=== PATIENT | male | born 1935 | race Caucasian/White ===

== ENCOUNTER → 2017-07-02 | Outpatient (CLI) | payer OTHER ==
--- NOTE | 2017-07-02 09:37 | RAD ---
HISTORY: Atherosclerotic heart disease Study: PA lateral chest Comparison: None Findings: Mild hyperinflation is noted. There appears to be minimal atelectatic change/infiltrate in the right lung base with minimal pleural effusion. The heart size is normal. Patient is status post median s ternotomy. Minimal degenerative changes present within the thoracic spine. IMPRESSION: 1. Mild hyperinflation. 2. Minimal right lower lobe atelectatic change/infiltrate. A tiny pleural effusion is noted on righ t Reported By:
== END ==
LOC: RAD 09:04
DX: I25.110 Atherosclerotic heart disease of native coronary artery with unstable angina pectoris (principal)
CPT/HCPCS: 71046

== ENCOUNTER 2018-06-17 09:07 | Inpatient (IN) ==
[2018-06-17 09:18] VITALS: BMI 23.8
[2018-06-17] MEDS ORDERED: MORPHINE SULFATE INJ 2 MG INJ IVP ONE ×2 (09:48→11:35)
[2018-06-17] MEDS ORDERED: MORPHINE SULFATE INJ 2 MG INJ ONE ×2 (09:55→11:37)
[2018-06-17] MEDS: NS 1000 ML 1,000 ML IV SCH ×3 (10:08→22:00)
[2018-06-17] MEDS: ZOFRAN INJ 4 MG VIAL IVP PRN (10:08)
[2018-06-17 10:13] LABS: BASOPHILS % (AUTO) 0.3 % (0.2-1.0); HEMATOCRIT 44.8 % (42.0-54.0); HEMOGLOBIN 14.5 g/dL (13.5-18.0); LYMPHOCYTES # (AUTO) 0.4 X10^3/uL (1.3-2.9); LYMPHOCYTES % (AUTO) 3.2 % (21.0-51.0); MEAN CORPUSCULAR HEMOGLOBIN 26.5 pg (27.0-34.0); MEAN CORPUSCULAR HGB CONC 32.3 g/dL (33.0-35.0); MEAN CORPUSCULAR VOLUME 81.8 fL (80.0-100.0); MONOCYTES # (AUTO) 1.4 x10^3/uL (0.3-0.8); NEUTROPHILS # (AUTO) 11.7 x10^3/uL (2.2-4.8); NEUTROPHILS % (AUTO) 86.5 % (42.0-75.0); PLATELET COUNT 251 X10^3/uL (150.0-450.0); RED BLOOD COUNT 5.48 X10^6/uL (4.7-6.0); RED CELL DISTRIBUTION WIDTH 16.8 % (11.6-16.5); WHITE BLOOD COUNT 13.5 X10^3/uL (3.6-10.0)
--- NOTE | 2018-06-17 10:26 | DR.MBACK ---
HPI Time Seen Time Seen by Provider: 06/17/18 09:48 PCP Primary Care Physician: [place] HPI Comment HPI Comment: PATIENT IS A Complaint Chief Complaint Doctors Comments: LOWER BACK PAIN WITH NAUSEA AND NOT EATING FOR 5 DAYS. Chief Complaint:: PATIENT IS C/O SEVERE BACK PAIN FOR THE LAST 5 DAYS. HE STATED THAT HE HURT IS BACK CLIMBING STAIRS. HE ALSO STATED THAT HE HAS NOT EAT OR DRINK IN 5 DAYS. Source History Provided: Patient Mode of Arrival Mode of Arrival: Ambulatory Timing Onset of Chief Complaint: 06/12/18 PMH PMH Past Medical History: Yes Past Medical History Comment: CANCER Past Surgical History: Yes Surgical History: CABG/Valve Surgery Family History History of Family Medical Conditions: No Social History Does any household member use tobacco: No Alcohol Use: None Do you use any recreational Drugs:: No Lives With: Family Lives Where: Home infectious screening In the last 2 months have you had wt loss of >10#?: NO Have you had fever, night sweats or hemotysis?: No Have you traveled outside the country in the last 6 months?: No Isolation: Standard PE Vital Signs Vitals: Pulse Rate [Left Brachial] 74 Pulse Rate 92 Respiratory Rate 16 Blood Pressure [Left Arm] 147/85 Blood Pressure 97/57 O2 Sat by Pulse Oximetry 95 ROR Labs Reviewed Result Diagrams: 06/17/18 10:05 06/17/18 10:05 Laboratory: WBC 13.5 X10^3/uL (3.6-10.0) H 06/17/18 10:05 RBC 5.48 X10^6/uL (4.7-6.0) 06/17/18 10:05 Hgb 14.5 g/dL (13.5-18.0) 06/17/18 10:05 Hct 44.8 % (42.0-54.0) 06/17/18 10:05 MCV 81.8 fL (80.0-100.0) 06/17/18 10:05 MCH 26.5 pg (27.0-34.0) L 06/17/18 10:05 MCHC 32.3 g/dL (33.0-35.0) L 06/17/18 10:05 RDW 16.8 % (11.6-16.5) H 06/17/18 10:05 Plt Count 251 X10^3/uL (150.0-450.0) 06/17/18 10:05 MPV 8.0 fL (7.4-11.0) 06/17/18 10:05 Neut % (Auto) 86.5 % (42.0-75.0) H 06/17/18 10:05 Lymph % (Auto) 3.2 % (21.0-51.0) L 06/17/18 10:05 [place] % (Auto) 10.0 % (0.0-13.0) 06/17/18 10:05 Eos % (Auto) 0.0 % (0.9-2.9) L 06/17/18 10:05 Baso % (Auto) 0.3 % (0.2-1.0) 06/17/18 10:05 Neut # (Auto) 11.7 x10^3/uL (2.2-4.8) H 06/17/18 10:05 Lymph # (Auto) 0.4 X10^3/uL (1.3-2.9) L 06/17/18 10:05 [place] # (Auto) 1.4 x10^3/uL (0.3-0.8) H 06/17/18 10:05 Eos # (Auto) 0.0 x10^3/uL (0.0-0.2) 06/17/18 10:05 Baso # (Auto) 0.0 X10^3/uL (0.0-0.1) 06/17/18 10:05 Absolute Nucleated RBC 0.0 /100WBC 06/17/18 10:05 Sodium 136 mmol/L (136-145) 06/17/18 10:05 Corrected Sodium 137 mmol/L (136-145) 06/17/18 10:05 Potassium 4.1 mmol/L (3.5-5.1) 06/17/18 10:05 Chloride 101 mmol/L (98-107) 06/17/18 10:05 Carbon Dioxide 25.6 mmol/L (21-32) 06/17/18 10:05 BUN 36 mg/dL (7-18) H 06/17/18 10:05 Creatinine 1.55 mg/dL (0.70-1.30) H 06/17/18 10:05 Est GFR (MDRD) Af Amer 55 (>60) L 06/17/18 10:05 Est GFR (MDRD) Non-Af 46 (>60) L 06/17/18 10:05 Glucose 144 mg/dL (65-99) H 06/17/18 10:05 Calcium 9.3 mg/dL (8.5-10.1) 06/17/18 10:05 Corrected Calcium 10.1 mg/dL (8.5-10.1) 06/17/18 10:05 Total Bilirubin 0.80 mg/dL (0.2-1.0) 06/17/18 10:05 AST 15 Units/L (15-37) 06/17/18 10:05 ALT 19 Units/L (12-78) 06/17/18 10:05 Alkaline Phosphatase 94 Units/L (46-116) 06/17/18 10:05 Creatine Kinase 45 Units/L (39-308) 06/17/18 10:05 CK-MB (CK-2) 1.0 ng/mL (0-4.0) 06/17/18 10:05 CK/CKMB % Calc 2.2 % (<4) 06/17/18 10:05 Troponin I < 0.02 ng/mL (0-1.5) 06/17/18 10:05 Total Protein 7.1 g/dL (6.4-8.2) 06/17/18 10:05 Albumin 3.0 g/dL (3.4-5.0) L 06/17/18 10:05 Globulin 4.1 g/dL (2.5-4.5) 06/17/18 10:05 Albumin/Globulin Ratio 0.7 Ratio (1.1-2.1) L 06/17/18 10:05 Specimen Type Random urine 06/17/18 11:34 Urine Color Yellow (YELLOW) 06/17/18 11:34 Urine Appearance Cloudy (CLEAR) 06/17/18 11:34 Urine pH 5.0 (5.0 - 8.0) 06/17/18 11:34 Ur Specific [place] 1.020 (1.000-1.030) 06/17/18 11:34 Urine Protein 2+ (NEGATIVE) 06/17/18 11:34 Urine Glucose (UA) 3+ (NEGATIVE) 06/17/18 11:34 Urine Ketones 3+ (NEGATIVE) 06/17/18 11:34 Urine Occult Blood 1+ (NEGATIVE) 06/17/18 11:34 Urine Nitrite Negative (NEGATIVE) 06/17/18 11:34 Urine Bilirubin Negative (NEGATIVE) 06/17/18 11:34 Urine Urobilinogen Normal (NORMAL) 06/17/18 11:34 Ur Leukocyte Esterase 1+ (NEGATIVE) 06/17/18 11:34 Urine RBC 0-2 /HPF (NONE SEEN) 06/17/18 11:34 Urine WBC 0-2 /HPF (NONE SEEN) 06/17/18 11:34 Ur Squamous Epith Cells Negative /HPF (NEGATIVE) 06/17/18 11:34 Urine Bacteria Negative /HPF (NEGATIVE) 06/17/18 11:34 Urine Mucus Few /HPF (NEGATIVE) 06/17/18 11:34 Ur Culture Indicated? No/not indicated 06/17/18 11:34
[2018-06-17 10:30] LABS: BLOOD UREA NITROGEN 36 mg/dL (7-18); CALCIUM 9.3 mg/dL (8.5-10.1); CARBON DIOXIDE 25.6 mmol/L (21-32); CHLORIDE 101 mmol/L (98-107); COR NA(FOR HYPERGLY) 137 mmol/L (136-145); CREATININE 1.55 mg/dL (0.70-1.30); SODIUM 136 mmol/L (136-145); TROPONIN I < 0.02 ng/mL (0-1.5); eGFR NON BLACK RACES 46 (>60)
[2018-06-17 10:34] LABS: ALANINE AMINOTRANSFERASE 19 Units/L (12-78); ALKALINE PHOSPHATASE 94 Units/L (46-116); ASPARTATE AMINO TRANSFERASE 15 Units/L (15-37); CKMB % 2.2 % (<4); COR CA(FOR HYPOALB) 10.1 mg/dL (8.5-10.1); CREATINE KINASE 45 Units/L (39-308); TOTAL PROTEIN 7.1 g/dL (6.4-8.2)
[2018-06-17] MEDS ORDERED: NS 100 ML IV 100 ML ONE (11:09)
[2018-06-17 11:49] LABS: BILIRUBIN,URINE NEGATIVE (NEGATIVE); BLOOD/HEMOGLOBIN,URINE 1+ (NEGATIVE); GLUCOSE, URINE 3+ (NEGATIVE); KETONES,URINE 3+ (NEGATIVE); LEUKOCYTE ESTERASE ,URINE 1+ (NEGATIVE); NITRITES,URINE NEGATIVE (NEGATIVE); PROTEIN,URINE 2+ (NEGATIVE); UROBILINOGEN,URINE NORMAL (NORMAL)
--- NOTE | 2018-06-17 11:55 | CT ---
HISTORY: Left flank and left quadrant pain Study: CT abdomen and pelvis with contrast Comparison: None Technique: Multiple axial images of the abdomen and pelvis were obtained from the lung bases to the pubic symphysis with the administration of IV contrast. Findings: Images demonstrate partially visualized pleural parenchymal opacities within the right lung which when appropriate may be further evaluated with follow-up CT of the chest. A small left-sided pleural effusion with adjacent compressive atelectasis is noted. Pleural calcifications are demonstrated bilaterally as well. Subcentimeter foci decreased attenuation within the liver are too small to accurately characterize. Diffuse decreased attenuation throughout the liver suggests fatty infiltration. Correlate clinically as other causes of hepatic disease may produce a similar appearance. The spleen, pancreas, adrenals, and right kidney are grossly unremarkable in appearance. Moderate left-sided hydronephrosis and proximal left hydroureter are noted with associated left-sided perinephric and periureteral stranding. These findings may be secondary to a recently passed stone or perhaps infectious process. Recommend clinical correlation and continued follow-up is indicated for further evaluation. A small to moderate-sized hiatal hernia is noted. The visualized esophagus is somewhat patulous and fluid-filled possibly representing reflux. Correlation with endoscopy may be helpful as clinically indicated. Numerous scattered colonic diverticuli are noted. Mild pericolonic mesenteric fat stranding is seen along the course of the descending and sigmoid colon. Early/mild diverticulitis cannot entirely be excluded. Correlate clinically. A small umbilical hernia containing fat is noted. The appendix is partially air-filled and otherwise grossly unremarkable. The prostate is enlarged and heterogeneous in appearance. Calcifications are noted within the prostate as well. The prostate compresses along the inferior margin of the urinary bladder. As visualized the urinary bladder is otherwise grossly unremarkable. Degenerative changes are seen within the visualized spine. IMPRESSION: Small left-sided pleural effusion with other pulmonary findings as noted above. Moderate left-sided hydronephrosis as discussed above. Diverticulosis. See above discussion. Other findings as noted above. Reported By:
[2018-06-17 11:56] LABS: APPEARANCE,URINE CLOUDY (CLEAR); BACTERIA,URINE NEGATIVE /HPF (NEGATIVE); COLOR,URINE YELLOW (YELLOW); RBC,URINE 0-2 /HPF (NONE SEEN); SQUAMOUS EPITHELIAL CELL,UR NEGATIVE /HPF (NEGATIVE)
[2018-06-17 11:57] LABS: MUCUS,URINE FEW /HPF (NEGATIVE)
[2018-06-17] MEDS ORDERED: TORADOL 15 MG VIAL IVP ONE (14:20)
[2018-06-17] MEDS ORDERED: TORADOL 15 MG VIAL ONE (14:21)
[2018-06-17] MEDS ORDERED: PEPCID 20 MG IV PREMIX* 20 MG/50 ML BAG IV PRN (15:11)
[2018-06-18] MEDS: NS 1000 ML 1,000 ML IV SCH ×3 (02:15→18:15)
[2018-06-18 05:27] LABS: BASOPHILS % (AUTO) 0.4 % (0.2-1.0); EOSINOPHILS # (AUTO) 0.1 x10^3/uL (0.0-0.2); EOSINOPHILS % (AUTO) 1.5 % (0.9-2.9); HEMATOCRIT 41.8 % (42.0-54.0); HEMOGLOBIN 13.5 g/dL (13.5-18.0); LYMPHOCYTES # (AUTO) 0.7 X10^3/uL (1.3-2.9); LYMPHOCYTES % (AUTO) 8.6 % (21.0-51.0); MEAN CORPUSCULAR HEMOGLOBIN 26.7 pg (27.0-34.0); MEAN CORPUSCULAR HGB CONC 32.3 g/dL (33.0-35.0); MEAN CORPUSCULAR VOLUME 82.6 fL (80.0-100.0); MEAN PLATELET VOLUME 9.1 fL (7.4-11.0); MONOCYTES % (AUTO) 12.5 % (0.0-13.0); NEUTROPHILS # (AUTO) 5.9 x10^3/uL (2.2-4.8); PLATELET COUNT 234 X10^3/uL (150.0-450.0); RED BLOOD COUNT 5.06 X10^6/uL (4.7-6.0); RED CELL DISTRIBUTION WIDTH 16.9 % (11.6-16.5); WHITE BLOOD COUNT 7.6 X10^3/uL (3.6-10.0)
[2018-06-18 05:35] LABS: ALANINE AMINOTRANSFERASE 19 Units/L (12-78); ALBUMIN 2.6 g/dL (3.4-5.0); ALKALINE PHOSPHATASE 79 Units/L (46-116); ASPARTATE AMINO TRANSFERASE 14 Units/L (15-37); BLOOD UREA NITROGEN 38 mg/dL (7-18); CALCIUM 8.6 mg/dL (8.5-10.1); CHLORIDE 103 mmol/L (98-107); COR CA(FOR HYPOALB) 9.7 mg/dL (8.5-10.1); CREATININE 1.65 mg/dL (0.70-1.30); SODIUM 139 mmol/L (136-145); TOTAL PROTEIN 6.2 g/dL (6.4-8.2); eGFR NON BLACK RACES 43 (>60)
[2018-06-18] MEDS: PLAVIX PO SCH (08:34)
[2018-06-18] MEDS ORDERED: ROCEPHIN VIAL 1 GRAM IVP SCH (09:00)
[2018-06-18] MEDS: NORCO 5/325 MG TAB PO PRN (11:25)
--- NOTE | 2018-06-18 12:02 | DR.H&P ---
H&P - History & Physical for Day of: H&P Date: 06/18/18 - Chief Complaint Chief Complaint: LEFT SIDE PAIN, WEAKNESS, URINARY FREQUENCY, POOR APPETITE FOR 5-6 DAYS - History of Present Illness History of Present Illness: 82 WM ER ADMISSION AFTER PRESENTING WITH CO LEFT FLANK AND LEFT ABDOMINAL PAIN. PTS SPOUSE REPORTS HE HAS NOT HAD BM IN 5 DAYS AND NOT EATING OR DRINKING MUCH. CO FREQUENT URINATION WITH "ONLY SMALL AMOUNT OUT". PT HAS PMH OF HTN, CAD, CHF. PT IS UNDER THE CARE OF THE ID IN [place]. PT HAS CT ABD/PELVIS WITHOUT CONTRAST REVEALING LEFT HYDRONEPHROSIS - Past Medical History Past Medical History: Arthritis, CHF, Coronary Artery Disease - Past Surgical History Surgical History: CABG/Valve Surgery - Family History Family Medical History: Cancer, Sudden Cardiac - Social History Does patient currently use any type of tobacco product: No Have you used tobacco products in the last 12 months: No Does any household member use tobacco: No Alcohol Use: None Drug Use: None - Medications Home Medications: No Known Drug Allergies Allergy (Verified 06/17/18 09:13) CONTINUE taking the following medications cholecalciferol (vitamin D3) [Vitamin D3] 5,000 units PO DAILY 06/17/18 [History] clopidogrel 75 mg PO DAILY 06/17/18 [History] [id number] oil [[place]-3 Fish Oil] 300 mg PO DAILY 06/17/18 [History] - Review of Systems Constitutional: Weakness Eyes: No Symptoms Reported ENT: No Symptoms Reported Respiratory: No Symptoms Reported Cardiovascular: No Symptoms Reported Gastrointestinal: Nausea, Abdominal Pain Genitourinary: Frequency, Retention Musculoskeletal: No Symptoms Reported Skin: No Symptoms Reported Neurological: No Symptoms Reported - Physical Exam Vital Signs: Temperature 98.4 F Pulse Rate [Left Brachial] 70 Pulse Rate 92 Respiratory Rate 20 Blood Pressure [Left Arm] 140/71 Blood Pressure 97/57 O2 Sat by Pulse Oximetry 98 Oriented: Normal Eyes: Normal Ear: Normal Nose: Normal Throat: Normal Respiratory: RLL Diminished, LLL Diminished Cardiovascular: Normal : Normal Auscultation: Bowel Sounds: Normal Palpation: Normal Tenderness: LUQ, LLQ Skin: Decreased [place] Musculoskeletal: Back:Thoracic Psychiatric: Anxiety Affect: Anxious Speech Pattern: Clear, Appropriate - Assessment/Plan (1) Left lateral abdominal pain Status: Acute Plan: ADMIT, STRICT I&OS. SAL[facility]ERO CATH,URINE CULTURE. VERIFY AND RESUME HOME MEDICATION. IV ROCEPHIN 1GM DAILY, PSA LEVEL, FLOMAX 0.4MG DAILY. BP AND CARDIAC MONITORING, CXR (2) Hydronephrosis Status: Acute (3) Renal insufficiency Status: Acute (4) UTI (urinary tract infection) Status: Acute (5) CHF (congestive heart failure) Status: Acute (6) CAD (coronary artery disease) Status: Acute - Allergies Allergies/Adverse Reactions: Allergies Allergy/AdvReac Type Severity Reaction Status Date / Time No Known Drug Allergies Allergy Verified 06/17/18 09:13
[2018-06-18] MEDS: ZOFRAN INJ 4 MG VIAL IVP PRN ×2 (12:46→19:30)
[2018-06-18] MEDS ORDERED: DULCOLAX TAB EC 5 MG PO ONE (12:52)
[2018-06-18] MEDS: MILK OF MAGNESIA PO SCH ×2 (13:12→21:10)
[2018-06-18] MEDS: PROTONIX TAB 40 MG PO SCH (13:12)
--- NOTE | 2018-06-18 15:29 | RAD ---
HISTORY: Gibson's palsy. Esophageal cancer. Congestive heart failure. Study: AP portable chest Comparison: 07/02/2017 Findings: There is minimal atelectatic change/infiltrate the left lung base. Mild is noted in the right lung base. There appear to be areas of pleural thickening. There is slight volume loss in the right hemithorax, possibly due to slight rotation and therefore artifactual. Borderline cardiomegaly is noted. Mild tortuosity of the aorta is noted. The patient is status post median sternotomy. Electronic cardiac device is present on the left and its leads appear to be in appropriate position. IMPRESSION: 1. Minimal bibasilar atelectatic change/infiltrate with what appear be areas of pleural thickening or pleural effusion on the right. Reported By:
[2018-06-18] MEDS: FLOMAX PO SCH ×2 (19:14→20:11)
[2018-06-18] MEDS: DILAUDID INJ IVP PRN (19:29)
[2018-06-18] MEDS: COLACE CAP 100 MG PO SCH (21:10)
[2018-06-18 22:28] LABS: BILIRUBIN,URINE NEGATIVE (NEGATIVE); BLOOD/HEMOGLOBIN,URINE 5+ (NEGATIVE); GLUCOSE, URINE 2+ (NEGATIVE); KETONES,URINE 3+ (NEGATIVE); LEUKOCYTE ESTERASE ,URINE 1+ (NEGATIVE); NITRITES,URINE NEGATIVE (NEGATIVE); PROTEIN,URINE 2+ (NEGATIVE); UROBILINOGEN,URINE NORMAL (NORMAL)
[2018-06-18 22:36] LABS: APPEARANCE,URINE CLOUDY (CLEAR); BACTERIA,URINE TRACE /HPF (NEGATIVE); COLOR,URINE BROWN (YELLOW); RBC,URINE TNTC /HPF (NONE SEEN); SQUAMOUS EPITHELIAL CELL,UR RARE /HPF (NEGATIVE)
[2018-06-18 22:37] LABS: MUCUS,URINE FEW /HPF (NEGATIVE)
[2018-06-19] MEDS: NS 1000 ML 1,000 ML IV SCH ×4 (02:10→18:06)
[2018-06-19 05:19] LABS: BASOPHILS % (AUTO) 0.3 % (0.2-1.0); EOSINOPHILS # (AUTO) 0.1 x10^3/uL (0.0-0.2); EOSINOPHILS % (AUTO) 1.4 % (0.9-2.9); LYMPHOCYTES # (AUTO) 0.5 X10^3/uL (1.3-2.9); LYMPHOCYTES % (AUTO) 7.1 % (21.0-51.0); MEAN CORPUSCULAR HGB CONC 32.5 g/dL (33.0-35.0); MEAN CORPUSCULAR VOLUME 83.1 fL (80.0-100.0); MONOCYTES # (AUTO) 0.9 x10^3/uL (0.3-0.8); MONOCYTES % (AUTO) 12.2 % (0.0-13.0); NEUTROPHILS # (AUTO) 5.6 x10^3/uL (2.2-4.8); PLATELET COUNT 252 X10^3/uL (150.0-450.0); RED BLOOD COUNT 5.18 X10^6/uL (4.7-6.0); RED CELL DISTRIBUTION WIDTH 16.8 % (11.6-16.5); WHITE BLOOD COUNT 7.1 X10^3/uL (3.6-10.0)
[2018-06-19 05:34] LABS: ALANINE AMINOTRANSFERASE 21 Units/L (12-78); ALBUMIN 2.6 g/dL (3.4-5.0); ALKALINE PHOSPHATASE 80 Units/L (46-116); ASPARTATE AMINO TRANSFERASE 16 Units/L (15-37); BLOOD UREA NITROGEN 36 mg/dL (7-18); CALCIUM 8.5 mg/dL (8.5-10.1); CARBON DIOXIDE 27.9 mmol/L (21-32); CHLORIDE 104 mmol/L (98-107); COR CA(FOR HYPOALB) 9.6 mg/dL (8.5-10.1); CREATININE 1.58 mg/dL (0.70-1.30); SODIUM 139 mmol/L (136-145); TOTAL PROTEIN 6.5 g/dL (6.4-8.2); eGFR NON BLACK RACES 45 (>60)
[2018-06-19] MEDS: MILK OF MAGNESIA PO SCH ×2 (08:14→20:33)
[2018-06-19] MEDS: PLAVIX PO SCH (08:15)
[2018-06-19] MEDS: PROTONIX TAB 40 MG PO SCH (08:15)
[2018-06-19] MEDS: ROCEPHIN VIAL 1 GRAM IVP SCH (08:15)
[2018-06-19] MEDS: PEPCID 20 MG IV PREMIX* 20 MG/50 ML BAG IV SCH (08:15)
[2018-06-19] MEDS: DILAUDID INJ IVP PRN ×3 (08:31→23:40)
[2018-06-19] MEDS: ZOFRAN INJ 4 MG VIAL IVP PRN (08:36)
[2018-06-19] MEDS: NORCO 5/325 MG TAB PO PRN (10:53)
--- NOTE | 2018-06-19 17:43 | PCM.PROG ---
Progress Note - Progress Note for Day of Date of Exam: 06/19/18 - Subjective Subjective: 82 WM ER ADMISSION ON 06/18 WITH LEFT FLANK PAIN, DECREASED URINE OUTPT AND LEFT HYDRONEPHROSIS. PT WAS STARTED ON FLOMAX AND IV ROCEPHIN. UC PENDING. PT RENAL FUNCTION IMPROVING, BUN 36, CREAT 1.58 THIS AM. SAL[facility]ERO CATH PLACED FOR STRICT I & OS. PT REPORTS CONTINUED LEFT ABDOMINAL AND FLANK PAIN THIS AM, BUT ABLE TO EAT SMALL AMOUNT. PT DENIES ANY SOB OR CHEST PAIN - Past Medical Family Social History Past Med/Fam/Surg Hx: No changes since H&P Allergies: Allergies No Known Drug Allergies Allergy (Verified 06/17/18 09:13) - Review of Systems ROS: No change since H&P - Vital Signs and I&O's Vital Signs: Temperature 98.5 F Pulse Rate [Left Brachial] 70 Pulse Rate 92 Respiratory Rate 20 Blood Pressure [Left Arm] 105/60 Blood Pressure 97/57 O2 Sat by Pulse Oximetry 95 Intake and Output: Intake & Output 06/17/18 06/18/18 06/19/18 06/20/18 11:59 11:59 11:59 11:59 Intake Total 580 / 580 700 / 700 920 / 920 Output Total 350 / 350 850 / 850 200 / 200 Balance 230 / 230 -150 / -150 720 / 720 - Physical Exam Oriented: Normal Eyes: Normal Ear: Normal Nose: Normal Throat: Normal Respiratory: Diminished Cardiovascular: Normal : Normal Auscultation: Bowel Sounds: Normal Tenderness: LUQ, LLQ Skin: Decreased [place] Musculoskeletal: Back:Thoracic Psychiatric: Anxiety Affect: Anxious Speech Pattern: Clear, Appropriate - Laboratory and Diagnostics Result Diagrams: 06/19/18 04:27 06/19/18 04:27 Labs: Laboratory WBC 7.1 X10^3/uL (3.6-10.0) 06/19/18 04:27 RBC 5.18 X10^6/uL (4.7-6.0) 06/19/18 04:27 Hgb 14.0 g/dL (13.5-18.0) 06/19/18 04:27 Hct 43.0 % (42.0-54.0) 06/19/18 04:27 MCV 83.1 fL (80.0-100.0) 06/19/18 04:27 MCH 27.0 pg (27.0-34.0) 06/19/18 04: MCHC 32.5 g/dL (33.0-35.0) L 06/19/18 04: RDW 16.8 % (11.6-16.5) H 06/19/18 04:27 Plt Count 252 X10^3/uL (150.0-450.0) 06/19/18 04: MPV 9.0 fL (7.4-11.0) 06/19/18 04:27 Neut % (Auto) 79.0 % (42.0-75.0) H 06/19/18 04:27 Lymph % (Auto) 7.1 % (21.0-51.0) L 06/19/18 04:27 [place] % (Auto) 12.2 % (0.0-13.0) 06/19/18 04: Eos % (Auto) 1.4 % (0.9-2.9) 06/19/18 04: Baso % (Auto) 0.3 % (0.2-1.0) 06/19/18 04:27 Neut # (Auto) 5.6 x10^3/uL (2.2-4.8) H 06/19/18 04:27 Lymph # (Auto) 0.5 X10^3/uL (1.3-2.9) L 06/19/18 04:27 [place] # (Auto) 0.9 x10^3/uL (0.3-0.8) H 06/19/18 04:27 Eos # (Auto) 0.1 x10^3/uL (0.0-0.2) 06/19/18 04:27 Baso # (Auto) 0.0 X10^3/uL (0.0-0.1) 06/19/18 04:27 Absolute Nucleated RBC 0.0 /100WBC 06/19/18 04:27 Sodium 139 mmol/L (136-145) 06/19/18 04:27 Corrected Sodium TNP 06/19/18 04:27 Potassium 4.3 mmol/L (3.5-5.1) 06/19/18 04:27 Chloride 104 mmol/L (98-107) 06/19/18 04:27 Carbon Dioxide 27.9 mmol/L (21-32) 06/19/18 04:27 BUN 36 mg/dL (7-18) H 06/19/18 04:27 Creatinine 1.58 mg/dL (0.70-1.30) H 06/19/18 04:27 Est GFR (MDRD) Af Amer 54 (>60) L 06/19/18 04:27 Est GFR (MDRD) Non-Af 45 (>60) L 06/19/18 04:27 Glucose 109 mg/dL (65-99) H 06/19/18 04:27 Calcium 8.5 mg/dL (8.5-10.1) 06/19/18 04:27 Corrected Calcium 9.6 mg/dL (8.5-10.1) 06/19/18 04:27 Total Bilirubin 0.50 mg/dL (0.2-1.0) 06/19/18 04:27 AST 16 Units/L (15-37) 06/19/18 04:27 ALT 21 Units/L (12-78) 06/19/18 04:27 Alkaline Phosphatase 80 Units/L (46-116) 06/19/18 04:27 Creatine Kinase 45 Units/L (39-308) 06/17/18 10:05 CK-MB (CK-2) 1.0 ng/mL (0-4.0) 06/17/18 10:05 CK/CKMB % Calc 2.2 % (<4) 06/17/18 10:05 Troponin I < 0.02 ng/mL (0-1.5) 06/17/18 10:05 Total Protein 6.5 g/dL (6.4-8.2) 06/19/18 04:27 Albumin 2.6 g/dL (3.4-5.0) L 06/19/18 04:27 Globulin 3.9 g/dL (2.5-4.5) 06/19/18 04:27 Albumin/Globulin Ratio 0.7 Ratio (1.1-2.1) L 06/19/18 04:27 Total PSA 2.56 ng/mL (0.13-4.0) 06/18/18 04:23 Specimen Type Catherized urine 06/18/18 22:13 Urine Color Brown (YELLOW) 06/18/18 22:13 Urine Appearance Cloudy (CLEAR) 06/18/18 22:13 Urine pH 5.0 (5.0 - 8.0) 06/18/18 22:13 Ur Specific [place] 1.020 (1.000-1.030) 06/18/18 22:13 Urine Protein 2+ (NEGATIVE) 06/18/18 22:13 Urine Glucose (UA) 2+ (NEGATIVE) 06/18/18 22:13 Urine Ketones 3+ (NEGATIVE) 06/18/18 22:13 Urine Occult Blood 5+ (NEGATIVE) 06/18/18 22:13 Urine Nitrite Negative (NEGATIVE) 06/18/18 22:13 Urine Bilirubin Negative (NEGATIVE) 06/18/18 22:13 Urine Urobilinogen Normal (NORMAL) 06/18/18 22:13 Ur Leukocyte Esterase 1+ (NEGATIVE) 06/18/18 22:13 Urine RBC Tntc /HPF (NONE SEEN) 06/18/18 22:13 Urine WBC 5-10 /HPF (NONE SEEN) 06/18/18 22:13 Ur Squamous Epith Cells Rare /HPF (NEGATIVE) 06/18/18 22:13 Urine Bacteria Trace /HPF (NEGATIVE) 06/18/18 22:13 Urine Mucus Few /HPF (NEGATIVE) 06/18/18 22:13 Ur Culture Indicated? No/not indicated 06/18/18 22:13 - Plan (1) Left lateral abdominal pain Status: Acute Plan: STRICT I&OS. SALGUERO CATH,URINE CULTURE. VERIFY AND RESUME HOME MEDICATION. IV ROCEPHIN 1GM DAILY, PSA LEVEL, FLOMAX 0.4MG DAILY. BP AND CARDIAC MONITORING, CXR ON ADMISSION. GENTLE IV HYDRATION, PAIN CONTROL. REPEAT CT ABD/PELVIS ON SUNDAY. (2) Hydronephrosis Status: Acute (3) Renal insufficiency Status: Acute (4) UTI (urinary tract infection) Status: Acute (5) CHF (congestive heart failure) Status: Acute (6) CAD (coronary artery disease) Status: Acute
[2018-06-19] MEDS: COLACE CAP 100 MG PO SCH (20:34)
[2018-06-19] MEDS: FLOMAX PO SCH (20:34)
[2018-06-20] MEDS: NS 1000 ML 1,000 ML IV SCH ×2 (03:07→13:53)
[2018-06-20 05:57] LABS: BASOPHILS % (AUTO) 0.1 % (0.2-1.0); EOSINOPHILS # (AUTO) 0.2 x10^3/uL (0.0-0.2); EOSINOPHILS % (AUTO) 2.6 % (0.9-2.9); HEMATOCRIT 37.7 % (42.0-54.0); HEMOGLOBIN 12.4 g/dL (13.5-18.0); LYMPHOCYTES # (AUTO) 0.4 X10^3/uL (1.3-2.9); LYMPHOCYTES % (AUTO) 5.5 % (21.0-51.0); MEAN CORPUSCULAR HEMOGLOBIN 27.1 pg (27.0-34.0); MEAN CORPUSCULAR VOLUME 82.1 fL (80.0-100.0); MEAN PLATELET VOLUME 8.2 fL (7.4-11.0); MONOCYTES # (AUTO) 0.9 x10^3/uL (0.3-0.8); MONOCYTES % (AUTO) 12.1 % (0.0-13.0); NEUTROPHILS # (AUTO) 6.3 x10^3/uL (2.2-4.8); NEUTROPHILS % (AUTO) 79.7 % (42.0-75.0); PLATELET COUNT 242 X10^3/uL (150.0-450.0); RED BLOOD COUNT 4.58 X10^6/uL (4.7-6.0); RED CELL DISTRIBUTION WIDTH 16.2 % (11.6-16.5); WHITE BLOOD COUNT 7.9 X10^3/uL (3.6-10.0)
--- NOTE | 2018-06-20 05:57 | CT ---
HISTORY: left flank pain Study: CT abdomen and pelvis without contrast Comparison: 06/17/2018 Technique: Multiple axial images of the abdomen and pelvis were obtained from the lung bases to the pubic symphysis without the administration of IV contrast. Findings: The visualized portions of the lung bases demonstrate bilateral left greater than right pleural effusions. Subsegmental atelectasis of the right and left base is noted. The liver demonstrates multiple subcentimeter lesions with decreased density that have not changed since prior examination of 06/17/2018. Lesions too small to accurately characterize on this noncontrast examination. The spleen is unremarkable in its noncontrast appearance. Pancreas, and adrenal glands image normally. The right kidney is unremarkable in its noncontrast appearance as well. However, the left kidney demonstrates persistent hydronephrosis without obstructing lesion identified. Perinephric stranding is noted to be present as well. Chronic congenital UPJ obstruction could be considered. Postoperative changes under stricture could produce a similar appearance. The gallbladder is unremarkable in its CT appearance. No significant mesenteric lymphadenopathy or stranding can be observed. No free fluid or free air is seen within the abdomen. No bowel wall thickening or bowel dilatation is present. Diffuse diverticular changes sigmoid colon are observed without CT evidence for acute diverticulitis. The urinary bladder is grossly unremarkable. The bony structures are grossly intact. IMPRESSION: Bilateral pleural effusion left greater than right and has not significantly changed since prior examination. Moderate central sliding hiatal hernia with retained food stuff within the distal esophagus. Nonspecific low-density lesions throughout the right and left lobe of the liver that are not well characterized on this noncontrast CT of the abdomen and pelvis. Mild hydronephrosis with perinephric stranding is observed without obstructing lesion of the ureter. Congenital UPJ obstruction could have this appearance but degree of hydronephrosis is minimal. Correlation with post surgical history or instrumentation is requested as possible etiologies as well. No evidence for obstructing or nonobstructing nephrolithiasis can be identified. Extensive diverticular changes of the sigmoid colon are observed without CT evidence for acute diverticulitis. Reported By:
[2018-06-20 06:07] LABS: ALBUMIN 2.3 g/dL (3.4-5.0); CARBON DIOXIDE 27.3 mmol/L (21-32); COR CA(FOR HYPOALB) 9.4 mg/dL (8.5-10.1); CREATININE 1.58 mg/dL (0.70-1.30); TOTAL PROTEIN 5.8 g/dL (6.4-8.2)
[2018-06-20] MEDS: LASIX IVP SCH ×2 (09:01→20:51)
[2018-06-20] MEDS: ROCEPHIN VIAL 1 GRAM IVP SCH (09:01)
[2018-06-20] MEDS: PEPCID 20 MG IV PREMIX* 20 MG/50 ML BAG IV SCH (09:02)
[2018-06-20] MEDS: PROTONIX TAB 40 MG PO SCH (09:05)
[2018-06-20] MEDS: MILK OF MAGNESIA PO SCH ×2 (09:10→20:52)
[2018-06-20] MEDS: PLAVIX PO SCH (09:10)
[2018-06-20] MEDS ORDERED: NEO-SYNEPHRINE INJ ONE (09:17)
[2018-06-20] MEDS ORDERED: NS 500 ML IV 500 ML ONE (12:05)
[2018-06-20] MEDS ORDERED: DIPRIVAN VIAL 20 ML ONE (12:18)
[2018-06-20] MEDS ORDERED: EPHEDRINE SULFATE INJ ONE (12:29)
--- NOTE | 2018-06-20 13:11 | OR.GENERIC ---
Post-Op Note Generic - Post-Op Note Operative Report: EGD with dilation of pyloric spasm . findings : pyloric spasm with large amount of residual food particles and bile in the stomach .. the old anastomosis is patent and wide open .. no recurrent cancer . no bleeding or ulcers . will start full liquid and advance to soft diet as tolerated . will need future dilation in few months ..
--- NOTE | 2018-06-20 17:11 | PCM.PROG ---
Progress Note - Progress Note for Day of Date of Exam: 06/20/18 - Subjective Subjective: 82 WM ER ADMISSION ON 06/18 WITH LEFT FLANK PAIN, DECREASED URINE OUTPT AND LEFT HYDRONEPHROSIS. PT ON FLOMAX AND IV ROCEPHIN. UC PENDING. PT RENAL FUNCTION IMPROVING. SALGUERO CATH PLACED FOR STRICT I & OS. PT REPORTS CONTINUED LEFT ABDOMINAL AND FLANK PAIN THIS AM, BUT ABLE TO EAT SMALL AMOUNT. PT'S REPEAT CT THIS AM. PT IS Status post esophagectomy with proximal gastroesophageal anastomosis for esophageal cancer. Possible distal obstruction with a large amount of retained food in the stomach. PT NPO, CONSULTED DR HENDERSON. - Past Medical Family Social History Past Med/Fam/Surg Hx: No changes since H&P Allergies: Allergies No Known Drug Allergies Allergy (Verified 06/17/18 09:13) - Review of Systems ROS: No change since H&P - Vital Signs and I&O's Vital Signs: Temperature 98.5 F Pulse Rate [Left Brachial] 75 Pulse Rate 92 Respiratory Rate 18 Blood Pressure [Right Arm] 125/83 Blood Pressure [Left Arm] 97/66 Blood Pressure 97/57 O2 Sat by Pulse Oximetry 92 Intake and Output: Intake & Output 06/18/18 06/19/18 06/20/18 06/21/18 11:59 11:59 11:59 11:59 Intake Total 580 / 580 700 / 700 2345 / 2345 240 / 240 Output Total 350 / 350 850 / 850 1200 / 1200 1750 / 1750 Balance 230 / 230 -150 / -150 1145 / 1145 -1510 / -1510 - Physical Exam Oriented: Normal Eyes: Normal Ear: Normal Nose: Normal Throat: Normal Respiratory: Diminished Cardiovascular: Normal : Normal Auscultation: Bowel Sounds: Normal Tenderness: LUQ, LLQ Skin: Decreased Turgur Musculoskeletal: Back:Thoracic Psychiatric: Anxiety Affect: Anxious Speech Pattern: Clear, Appropriate - Laboratory and Diagnostics Result Diagrams: 06/20/18 05:15 06/20/18 05:15 Labs: 06/18/18 22:13 Urine,Catheterized Urine Culture - Preliminary Laboratory WBC 7.9 X10^3/uL (3.6-10.0) 06/20/18 05:15 RBC 4.58 X10^6/uL (4.7-6.0) L 06/20/18 05:15 Hgb 12.4 g/dL (13.5-18.0) L 06/20/18 05:15 Hct 37.7 % (42.0-54.0) L 06/20/18 05:15 MCV 82.1 fL (80.0-100.0) 06/20/18 05:15 MCH 27.1 pg (27.0-34.0) 06/20/18 05:15 MCHC 33.0 g/dL (33.0-35.0) 06/20/18 05:15 RDW 16.2 % (11.6-16.5) 06/20/18 05:15 Plt Count 242 X10^3/uL (150.0-450.0) 06/20/18 05:15 MPV 8.2 fL (7.4-11.0) 06/20/18 05:15 Neut % (Auto) 79.7 % (42.0-75.0) H 06/20/18 05:15 Lymph % (Auto) 5.5 % (21.0-51.0) L 06/20/18 05:15 [place] % (Auto) 12.1 % (0.0-13.0) 06/20/18 05:15 Eos % (Auto) 2.6 % (0.9-2.9) 06/20/18 05:15 Baso % (Auto) 0.1 % (0.2-1.0) L 06/20/18 05:15 Neut # (Auto) 6.3 x10^3/uL (2.2-4.8) H 06/20/18 05:15 Lymph # (Auto) 0.4 X10^3/uL (1.3-2.9) L 06/20/18 05:15 [place] # (Auto) 0.9 x10^3/uL (0.3-0.8) H 06/20/18 05:15 Eos # (Auto) 0.2 x10^3/uL (0.0-0.2) 06/20/18 05:15 Baso # (Auto) 0.0 X10^3/uL (0.0-0.1) 06/20/18 05:15 Absolute Nucleated RBC 0.0 /100WBC 06/20/18 05:15 Sodium 138 mmol/L (136-145) 06/20/18 05:15 Corrected Sodium 139 mmol/L (136-145) 06/20/18 05:15 Potassium 4.3 mmol/L (3.5-5.1) 06/20/18 05:15 Chloride 104 mmol/L (98-107) 06/20/18 05:15 Carbon Dioxide 27.3 mmol/L (21-32) 06/20/18 05:15 BUN 31 mg/dL (7-18) H 06/20/18 05:15 Creatinine 1.58 mg/dL (0.70-1.30) H 06/20/18 05:15 Est GFR (MDRD) Af Amer 54 (>60) L 06/20/18 05:15 Est GFR (MDRD) Non-Af 45 (>60) L 06/20/18 05:15 Glucose 127 mg/dL (65-99) H 06/20/18 05:15 Calcium 8.0 mg/dL (8.5-10.1) L 06/20/18 05:15 Corrected Calcium 9.4 mg/dL (8.5-10.1) 06/20/18 05:15 Total Bilirubin 0.40 mg/dL (0.2-1.0) 06/20/18 05:15 AST 13 Units/L (15-37) L 06/20/18 05:15 ALT 17 Units/L (12-78) 06/20/18 05:15 Alkaline Phosphatase 74 Units/L (46-116) 06/20/18 05:15 Creatine Kinase 45 Units/L (39-308) 06/17/18 10:05 CK-MB (CK-2) 1.0 ng/mL (0-4.0) 06/17/18 10:05 CK/CKMB % Calc 2.2 % (<4) 06/17/18 10:05 Troponin I < 0.02 ng/mL (0-1.5) 06/17/18 10:05 Total Protein 5.8 g/dL (6.4-8.2) L 06/20/18 05:15 Albumin 2.3 g/dL (3.4-5.0) L 06/20/18 05:15 Globulin 3.5 g/dL (2.5-4.5) 06/20/18 05:15 Albumin/Globulin Ratio 0.7 Ratio (1.1-2.1) L 06/20/18 05:15 Total PSA 2.56 ng/mL (0.13-4.0) 06/18/18 04:23 Specimen Type Catherized urine 06/18/18 22:13 Urine Color Brown (YELLOW) 06/18/18 22:13 Urine Appearance Cloudy (CLEAR) 06/18/18 22:13 Urine pH 5.0 (5.0 - 8.0) 06/18/18 22:13 Ur Specific [place] 1.020 (1.000-1.030) 06/18/18 22:13 Urine Protein 2+ (NEGATIVE) 06/18/18 22:13 Urine Glucose (UA) 2+ (NEGATIVE) 06/18/18 22:13 Urine Ketones 3+ (NEGATIVE) 06/18/18 22:13 Urine Occult Blood 5+ (NEGATIVE) 06/18/18 22:13 Urine Nitrite Negative (NEGATIVE) 06/18/18 22:13 Urine Bilirubin Negative (NEGATIVE) 06/18/18 22:13 Urine Urobilinogen Normal (NORMAL) 06/18/18 22:13 Ur Leukocyte Esterase 1+ (NEGATIVE) 06/18/18 22:13 Urine RBC Tntc /HPF (NONE SEEN) 06/18/18 22:13 Urine WBC 5-10 /HPF (NONE SEEN) 06/18/18 22:13 Ur Squamous Epith Cells Rare /HPF (NEGATIVE) 06/18/18 22:13 Urine Bacteria Trace /HPF (NEGATIVE) 06/18/18 22:13 Urine Mucus Few /HPF (NEGATIVE) 06/18/18 22:13 Ur Culture Indicated? No/not indicated 06/18/18 22:13 - Plan (1) Left lateral abdominal pain Status: Acute Plan: STRICT I&OS. SALGUERO CATH,URINE CULTURE. IV ROCEPHIN 1GM DAILY, PSA LEVEL, FLOMAX 0.4MG DAILY. BP AND CARDIAC MONITORING. IV LASIX IV. GENTLE IV HYDRATION, PAIN CONTROL. REPEAT CT ABD/PELVIS ON SUNDAY. (2) Hydronephrosis Status: Acute (3) Renal insufficiency Status: Acute (4) UTI (urinary tract infection) Status: Acute (5) CHF (congestive heart failure) Status: Acute (6) CAD (coronary artery disease) Status: Acute (7) History of esophageal cancer Status: Acute Plan: NPO FOR GI CONSULT. SEE CT REPORT (8) History of esophageal disorder Status: Acute
[2018-06-20] MEDS: COLACE CAP 100 MG PO SCH (20:51)
[2018-06-20] MEDS: FLOMAX PO SCH (20:51)
[2018-06-21] MEDS: NS 1000 ML 1,000 ML IV SCH ×4 (05:09→10:45)
[2018-06-21 05:23] LABS: BASOPHILS % (AUTO) 0.4 % (0.2-1.0); EOSINOPHILS # (AUTO) 0.3 x10^3/uL (0.0-0.2); HEMATOCRIT 35.3 % (42.0-54.0); HEMOGLOBIN 11.6 g/dL (13.5-18.0); LYMPHOCYTES # (AUTO) 0.6 X10^3/uL (1.3-2.9); LYMPHOCYTES % (AUTO) 10.5 % (21.0-51.0); MEAN CORPUSCULAR HEMOGLOBIN 26.6 pg (27.0-34.0); MEAN CORPUSCULAR HGB CONC 32.9 g/dL (33.0-35.0); MEAN PLATELET VOLUME 8.3 fL (7.4-11.0); MONOCYTES # (AUTO) 0.7 x10^3/uL (0.3-0.8); MONOCYTES % (AUTO) 12.5 % (0.0-13.0); NEUTROPHILS # (AUTO) 4.1 x10^3/uL (2.2-4.8); NEUTROPHILS % (AUTO) 70.6 % (42.0-75.0); PLATELET COUNT 240 X10^3/uL (150.0-450.0); RED BLOOD COUNT 4.35 X10^6/uL (4.7-6.0); RED CELL DISTRIBUTION WIDTH 16.2 % (11.6-16.5); WHITE BLOOD COUNT 5.8 X10^3/uL (3.6-10.0)
[2018-06-21 05:26] LABS: ALANINE AMINOTRANSFERASE 17 Units/L (12-78); ALBUMIN 2.3 g/dL (3.4-5.0); ALKALINE PHOSPHATASE 69 Units/L (46-116); ASPARTATE AMINO TRANSFERASE 15 Units/L (15-37); BLOOD UREA NITROGEN 20 mg/dL (7-18); CALCIUM 7.8 mg/dL (8.5-10.1); CARBON DIOXIDE 30.6 mmol/L (21-32); CHLORIDE 101 mmol/L (98-107); COR CA(FOR HYPOALB) 9.2 mg/dL (8.5-10.1); CREATININE 1.18 mg/dL (0.70-1.30); SODIUM 137 mmol/L (136-145); TOTAL PROTEIN 5.6 g/dL (6.4-8.2); eGFR NON BLACK RACES > 60 (>60)
[2018-06-21] MEDS ORDERED: K-DUR TAB 20 MEQ PO PRN (05:52)
[2018-06-21] MEDS ORDERED: KLOR-CON PO PRN (05:52)
[2018-06-21] MEDS ORDERED: POTASSIUM CHLORIDE LIQ 20 MEQ UDC PO PRN (05:52)
[2018-06-21] MEDS ORDERED: POTASSIUM CHL 60 MEQ/NS 0.45% 500 ML IV PRN (05:52)
[2018-06-21] MEDS ORDERED: MICRO K EXTEN CAP 10 MEQ PO PRN (05:52)
[2018-06-21] MEDS ORDERED: POTASSIUM CHL 40 MEQ/NS 0.45% 500 ML IV PRN (05:52)
[2018-06-21] MEDS ORDERED: K-RIDER 10 MEQ/NS 100 ML 10 MEQ/100 ML BAG IV PRN (05:52)
[2018-06-21] MEDS ORDERED: KLOR-CON PO ONE (06:23)
[2018-06-21] MEDS: ROCEPHIN VIAL 1 GRAM IVP SCH (08:50)
[2018-06-21] MEDS: PEPCID 20 MG IV PREMIX* 20 MG/50 ML BAG IV SCH (08:50)
[2018-06-21] MEDS: PROTONIX TAB 40 MG PO SCH (08:50)
[2018-06-21] MEDS: MILK OF MAGNESIA PO SCH (08:51)
[2018-06-21] MEDS: PLAVIX PO SCH (08:51)
--- NOTE | 2018-06-21 10:55 | DR.PROGNOT ---
Hospital Progress Notes - Progress Note for Day of: Progress Note Date: 06/21/18 - Chief Complaint Chief Complaint: tolerating diet well . still c/o pressure feeling after meals . no vomiting . - Past Medical Family Social History Past Med/Fam/Surg Hx: No changes since H&P Allergies: Allergies No Known Drug Allergies Allergy (Verified 06/17/18 09:13) - Review Of Systems ROS: No change since H&P - Vital Signs Vital Signs: Temperature 98.0 F Pulse Rate [Left Brachial] 76 Pulse Rate 92 Respiratory Rate 20 Blood Pressure [Right Arm] 99/65 Blood Pressure [Left Arm] 97/66 Blood Pressure 97/57 O2 Sat by Pulse Oximetry 98 - Physical Exam Oriented: Normal Eyes: Normal Ear: Normal Nose: Normal Throat: Normal Respiratory: Diminished Cardiovascular: Normal : Normal GI:Auscultation: Normal GI:Palpation: Normal (soft abdomen , non tender , BS +) GI: Tenderness: LUQ, LLQ Skin: Decreased Turgur Musculoskeletal: Back:Thoracic Psychiatric: Anxiety Affect: Anxious Speech Pattern: Clear, Appropriate - Laboratory and Diagnostics Result Diagrams: 06/21/18 04:31 06/21/18 04:31 Labs: 06/18/18 22:13 Urine,Catheterized Urine Culture - Final Laboratory WBC 5.8 X10^3/uL (3.6-10.0) 06/21/18 04:31 RBC 4.35 X10^6/uL (4.7-6.0) L 06/21/18 04:31 Hgb 11.6 g/dL (13.5-18.0) L 06/21/18 04:31 Hct 35.3 % (42.0-54.0) L 06/21/18 04:31 MCV 81.0 fL (80.0-100.0) 06/21/18 04:31 MCH 26.6 pg (27.0-34.0) L 06/21/18 04:31 MCHC 32.9 g/dL (33.0-35.0) L 06/21/18 04:31 RDW 16.2 % (11.6-16.5) 06/21/18 04:31 Plt Count 240 X10^3/uL (150.0-450.0) 06/21/18 04:31 MPV 8.3 fL (7.4-11.0) 06/21/18 04:31 Neut % (Auto) 70.6 % (42.0-75.0) 06/21/18 04:31 Lymph % (Auto) 10.5 % (21.0-51.0) L 06/21/18 04:31 [place] % (Auto) 12.5 % (0.0-13.0) 06/21/18 04:31 Eos % (Auto) 6.0 % (0.9-2.9) H 06/21/18 04:31 Baso % (Auto) 0.4 % (0.2-1.0) 06/21/18 04:31 Neut # (Auto) 4.1 x10^3/uL (2.2-4.8) 06/21/18 04:31 Lymph # (Auto) 0.6 X10^3/uL (1.3-2.9) L 06/21/18 04:31 [place] # (Auto) 0.7 x10^3/uL (0.3-0.8) 06/21/18 04:31 Eos # (Auto) 0.3 x10^3/uL (0.0-0.2) H 06/21/18 04:31 Baso # (Auto) 0.0 X10^3/uL (0.0-0.1) 06/21/18 04:31 Absolute Nucleated RBC 0.0 /100WBC 06/21/18 04:31 Sodium 137 mmol/L (136-145) 06/21/18 04:31 Corrected Sodium TNP 06/21/18 04:31 Potassium 3.4 mmol/L (3.5-5.1) L 06/21/18 04:31 Chloride 101 mmol/L (98-107) 06/21/18 04:31 Carbon Dioxide 30.6 mmol/L (21-32) 06/21/18 04:31 BUN 20 mg/dL (7-18) H 06/21/18 04:31 Creatinine 1.18 mg/dL (0.70-1.30) 06/21/18 04:31 Est GFR (MDRD) Af Amer > 60 (>60) 06/21/18 04:31 Est GFR (MDRD) Non-Af > 60 (>60) 06/21/18 04:31 Glucose 110 mg/dL (65-99) H 06/21/18 04:31 Calcium 7.8 mg/dL (8.5-10.1) L 06/21/18 04:31 Corrected Calcium 9.2 mg/dL (8.5-10.1) 06/21/18 04:31 Magnesium 2.2 mg/dL (1.7-2.9) 06/21/18 04:31 Total Bilirubin 0.40 mg/dL (0.2-1.0) 06/21/18 04:31 AST 15 Units/L (15-37) 06/21/18 04:31 ALT 17 Units/L (12-78) 06/21/18 04:31 Alkaline Phosphatase 69 Units/L (46-116) 06/21/18 04:31 Creatine Kinase 45 Units/L (39-308) 06/17/18 10:05 CK-MB (CK-2) 1.0 ng/mL (0-4.0) 06/17/18 10:05 CK/CKMB % Calc 2.2 % (<4) 06/17/18 10:05 Troponin I < 0.02 ng/mL (0-1.5) 06/17/18 10:05 Total Protein 5.6 g/dL (6.4-8.2) L 06/21/18 04:31 Albumin 2.3 g/dL (3.4-5.0) L 06/21/18 04:31 Globulin 3.3 g/dL (2.5-4.5) 06/21/18 04:31 Albumin/Globulin Ratio 0.7 Ratio (1.1-2.1) L 06/21/18 04:31 Total PSA 2.56 ng/mL (0.13-4.0) 06/18/18 04:23 Specimen Type Catherized urine 06/18/18 22:13 Urine Color Brown (YELLOW) 06/18/18 22:13 Urine Appearance Cloudy (CLEAR) 06/18/18 22:13 Urine pH 5.0 (5.0 - 8.0) 06/18/18 22:13 Ur Specific [place] 1.020 (1.000-1.030) 06/18/18 22:13 Urine Protein 2+ (NEGATIVE) 06/18/18 22:13 Urine Glucose (UA) 2+ (NEGATIVE) 06/18/18 22:13 Urine Ketones 3+ (NEGATIVE) 06/18/18 22:13 Urine Occult Blood 5+ (NEGATIVE) 06/18/18 22:13 Urine Nitrite Negative (NEGATIVE) 06/18/18 22:13 Urine Bilirubin Negative (NEGATIVE) 06/18/18 22:13 Urine Urobilinogen Normal (NORMAL) 06/18/18 22:13 Ur Leukocyte Esterase 1+ (NEGATIVE) 06/18/18 22:13 Urine RBC Tntc /HPF (NONE SEEN) 06/18/18 22:13 Urine WBC 5-10 /HPF (NONE SEEN) 06/18/18 22:13 Ur Squamous Epith Cells Rare /HPF (NEGATIVE) 06/18/18 22:13 Urine Bacteria Trace /HPF (NEGATIVE) 06/18/18 22:13 Urine Mucus Few /HPF (NEGATIVE) 06/18/18 22:13 Ur Culture Indicated? No/not indicated 06/18/18 22:13 - Assessment and Plan 1: pyloric spasm . s/o esophagectomy with high gastro esophageal anastomosis. Pt should have multiple small meals .and repeat dilation in 3 months . could be D/C and will follow as out Pt . - Problem Patient Problems: Patient Problems Intractable pain (Acute) R52 Left lateral abdominal pain (Acute) R10.9 Hydronephrosis (Acute) N13.30 Renal insufficiency (Acute) N28.9 UTI (urinary tract infection) (Acute) N39.0 CHF (congestive heart failure) (Acute) I50.9 CAD (coronary artery disease) (Acute) I25.10 History of esophageal cancer (Acute) Z85.01 History of esophageal disorder (Acute) Z87.19
[2018-06-21 12:42] VITALS: BP 116/72
== END 2018-06-21 14:09 | disposition home or self-care (01) | DRG 694 ==
LOC: MED/SURG 09:13 → ER 09:13 → MED/SURG 15:30
PROVIDERS: ADMIT Internal Medicine; ATTEND Internal Medicine
DX: Z87.19 Personal history of other diseases of the digestive system; R53.1 Weakness; I25.10 Atherosclerotic heart disease of native coronary artery without angina pectoris; R35.0 Frequency of micturition; N28.9 Disorder of kidney and ureter, unspecified; Z98.0 Intestinal bypass and anastomosis status; Z85.01 Personal history of malignant neoplasm of esophagus; I50.9 Heart failure, unspecified; I11.0 Hypertensive heart disease with heart failure; N39.0 Urinary tract infection, site not specified; R10.84 Generalized abdominal pain; J90 Pleural effusion, not elsewhere classified; N13.39 Other hydronephrosis; K44.9 Diaphragmatic hernia without obstruction or gangrene; R94.4 Abnormal results of kidney function studies; M54.5 Low back pain; N40.1 Benign prostatic hyperplasia with lower urinary tract symptoms; K57.90 Diverticulosis of intestine, part unspecified, without perforation or abscess without bleeding; K21.9 Gastro-esophageal reflux disease without esophagitis
CPT/HCPCS: 36415; 71010; 71045; 74176; 74177; 80053; 81001; 82550; 82553; 83735; 84153; 84484; 85025; 87086; 93005; 94760; 96365; 96367; 96374; 96375; 99100; 99284; A4222; S0028; G0378; J0696; J1170; J1885; J1940; J2270; J2370; J2405; J2704; J3490; J7030; J7040; J7050

== ENCOUNTER 2019-06-16 16:15 | Inpatient (IN) ==
--- NOTE | 2019-06-16 16:27 | DR.GENAD ---
HPI Time Seen Time Seen by Provider: 06/16/19 16:26 HPI Comment HPI Comment: PATIENT IS 83YR OLD MALE HERE IN ER FOR EVALUATION OF JAUDICE. HE SAID HE HAS HAD PROGRESSIVE JAUDICE FOR 3 WEEKS. HE IS WEAK AND HAVE NO APPETITE AND IS LOST WEIGHT. HE CONSTANTLY HAVE ABDOMINAL PAIN THAT HAVE GOTTEN WORSE. NO FEVER OR DYSURIA. HISTORY ESOPHAGEAL CANCER. SIMILAR SYMPTOM WITH JAUDICE SEVERAL YEARS AGO THAT RESOLVE WITH STENT BEING PLACE IN THE GALL BLADDER. HE SAID HIS URINE IS TEA COLOR. HE ALSO HAVE LOWER BACK PAIN. HE IS A [facility] AND DR. GUIDRY IS HIS LOCAL PHYSICIAN. Complaint/Symptoms Chief Complaint Doctors Comments: JAUDICE, ABDOMINAL PAIN AND LOWER BACK PAIN. COVID-19 Coronavirus risk:travel/contact w/high risk person: No Has patient experienced Coronavirus symptoms: No Nurses notes reviewed Nurses Notes Review: Yes Source History Provided: Patient and Family Member (.) Mode of Arrival Mode of Arrival: Ambulatory Timing Came on: Gradually Duration Duration: Weeks Severity Severity: Moderate Modifying Factors Worsens:: EXERTION Improves:: REST. Associated Signs and Symptoms Associated Signs and Symptoms: GENERALIZED WEAKNESS, ANOREXIA. Other History Other History: HISTORY ESOPHGEAL CANCER AND STENT PLACE IN [place] FEW YEARS AGO. PMH PMH Past Medical History: Arthritis, CHF, COPD and Coronary Artery Disease Past Surgical History: Yes Surgical History: CABG/Valve Surgery Family History Family Medical History: Cancer and Sudden Cardiac Social History Do you use any recreational Drugs:: No ROS Review of Systems Constitutional: See HPI, Weakness and Fatigue; negative Fever Eyes: No Symptoms Reported and See HPI; negative Blurred Vision and Diplopia ENTM: No Symptoms Reported and See HPI; negative Ear Pain, Nose Discharge, Nose Congestion and Throat Pain Respiratoy: Non-Productive Cough and Short of Breath (ONEXERTION.); negative Wheezing Cardiovascular: No Symptoms Reported and See HPI; negative Chest Pain and Edema Gastrointestinal/Abdominal: See HPI, Abdominal Pain, Diarrhea and Nausea; negative Vomiting Genitourinary: No Symptoms Reported and See HPI; negative Dysuria, Frequency and Hematuria Neurological: See HPI and Weakness; negative Headache and Dizziness Musculoskeletal: See HPI, Back Pain and Muscle Pain Integumentary: See HPI, Itching and Juandice; negative Change in Color and Rash Hematologic/Lymphatic: No Symptoms Reported and See HPI; negative Easy Bruising and Swollen Glands Endocrine: No Symptoms Reported and See HPI; negative Increased Thirst and Increased Urine Psychiatric: No Symptoms Reported and See HPI All Other Systems: Reviewed and Negative PE Vital Signs Vitals: Temperature 97.2 F Pulse Rate 70 Respiratory Rate 20 Blood Pressure [Right Arm] 122/76 Blood Pressure 126/80 O2 Sat by Pulse Oximetry 100 General Limitations: No Limitations General Appearance: Alert, In No Apparent Distress and Other (JAUDICED.) Head Head Exam: Normal Inspection and Atraumatic Eyes Eye exam: Normal Appearance and PERRL; negative Scleral Icterus and Conjunctival Injection ENT ENT Exam: Normal Exam, Normal Oropharynx, Normal External Ear Exam and TM's Normal Bilaterally External Ear Exam: Normal External Inspection; negative Mastoid Tenderness TM/Canal Exam: Bilateral: Normal Nose Exam: Normal Nose Exam; negative Sinus Tenderness Mouth Exam: Normal Inspection Throat Exam: Normal Inspection; negative Tonsillar Erythema, Tonsillomegaly and Tonsillar Exudate Neck Neck Exam: Normal Inspection and Trachea Midline; negative Tenderness and Lymphadenopathy Chest Chest Inspection: Normal Inspection and Symmetric Chest Wall Rise; negative Tenderness Respiratory Respiratory Exam: Normal Lung Sounds Bilat; negative Accessory Muscle Use, Chest Wall Tenderness and Respiratory Distress Respiratory Exam: Bilateral: Rhonchi and Lower: Rhonchi Cardiovascular Cardiovascular Exam: Regular Rate, Normal Rhythm and Normal Heart Sounds; negative Systolic Murmur and Diastolic Murmur Abdominal Exam Abdominal Exam: Normal Inspection, Normal Bowel Sounds, Soft and Tenderness Abdominal Tenderness: Diffuse and Moderate Extremities Extremities Exam: Normal Inspection and Normal Capillary Refill; negative Tenderness, Edema and Calf Tenderness Back Back Exam: Normal Inspection; negative (R) CVA Tenderness, (L) CVA Tenderness and Paraspinal Tenderness Neurologic Neurological Exam: Alert, Oriented X3 and CN II-XII Intact; negative Motor Sensory Deficit Psychiatric Psychiatric Exam: Normal Affect and Normal Mood Skin Skin Exam: Other (JAUDICED.) MDM Additional Information Additional Information Obtained From: Family ( IN ER WITH PATIENT.) Differential Diagnosis Differential Diagnosis: JAUDICED, ABDOMINAL PAIN, ANOREXIA, HISTORY GB OBSTRUCTION, CIRRHOSIS OF LI COURSE Treatment Treatment: SEE ORDERS. Reevaluation 1st: Unchanged Consultation Consultation Comments: DISCSSED PATIENT WITH DR. GUIDRY. HE WILL ADMIT PATIEN T. Education/Counseling Education/Counseling: Patient and Family Educated On: Diagnosis ROR Labs Reviewed Laboratory Results Reviewed?: Yes Result Diagrams: 06/17/19 04:38 06/17/19 04:38 Laboratory: WBC 4.1 X10^3/uL (3.6-10.0) 06/16/19 16:47 RBC 4.04 X10^6/uL (4.7-6.0) L 06/16/19 16:47 Hgb 11.5 g/dL (13.5-18.0) L 06/16/19 16:47 Hct 34.5 % (42.0-54.0) L 06/16/19 16:47 MCV 85.5 fL (80.0-100.0) 06/16/19 16:47 MCH 28.6 pg (27.0-34.0) 06/16/19 16:47 MCHC 33.4 g/dL (33.0-35.0) 06/16/19 16:47 RDW 20.9 % (11.6-16.5) H 06/16/19 16:47 Plt Count 235 X10^3/uL (150.0-450.0) 06/16/19 16:47 Plt Count Comment Adequate (ADEQUATE) 06/16/19 16:47 MPV 8.9 fL (7.4-11.0) 06/16/19 16:47 Neut % (Auto) 26.7 % (42.0-75.0) L 06/16/19 16:47 Lymph % (Auto) 59.3 % (21.0-51.0) H 06/16/19 16:47 [place] % (Auto) 13.4 % (0.0-13.0) H 06/16/19 16:47 Eos % (Auto) 0.6 % (0.9-2.9) L 06/16/19 16:47 Baso % (Auto) 0 % (0.2-1.0) L 06/16/19 16:47 Neut # (Auto) 1.1 x10^3/uL (2.2-4.8) L 06/16/19 16:47 Lymph # (Auto) 2.4 X10^3/uL (1.3-2.9) 06/16/19 16:47 [place] # (Auto) 0.5 x10^3/uL (0.3-0.8) 06/16/19 16:47 Eos # (Auto) 0.0 x10^3/uL (0.0-0.2) 06/16/19 16:47 Baso # (Auto) 0.0 X10^3/uL (0.0-0.1) 06/16/19 16:47 Absolute Nucleated RBC 0.1 /100WBC 06/16/19 16:47 Total Counted 100 06/16/19 16:47 Neutrophils % (Manual) 60 % (39-76) 06/16/19 16:47 Lymphocytes % (Manual) 33 % (13-43) 06/16/19 16:47 Monocytes % (Manual) 7 % (4-9) 06/16/19 16:47 Plt Morphology Comment Normal (NORMAL) 06/16/19 16:47 RBC Morphology Abnormal (NORMAL) 06/16/19 16:47 Hypochromasia 1+ A 06/16/19 16:47 Anisocytosis 1+ A 06/16/19 16:47 Target Cells 1+ A 06/16/19 16:47 Sodium 139 mmol/L (136-145) 06/16/19 16:47 Corrected Sodium TNP 06/16/19 16:47 Potassium 3.7 mmol/L (3.5-5.1) 06/16/19 16:47 Chloride 105 mmol/L (98-107) 06/16/19 16:47 Carbon Dioxide 24.1 mmol/L (21-32) 06/16/19 16:47 BUN 19 mg/dL (7-18) H 06/16/19 16:47 Creatinine 0.69 mg/dL (0.70-1.30) L 06/16/19 16:47 Est GFR (MDRD) Af Amer > 60 (>60) 06/16/19 16:47 Est GFR (MDRD) Non-Af > 60 (>60) 06/16/19 16:47 Glucose 82 mg/dL (65-99) 06/16/19 16:47 Calcium 8.7 mg/dL (8.5-10.1) 06/16/19 16:47 Corrected Calcium 10.3 mg/dL (8.5-10.1) H 06/16/19 16:47 Total Bilirubin 14.80 mg/dL (0.2-1.0) H 06/16/19 16:47 AST 109 Units/L (15-37) H 06/16/19 16:47 ALT 87 Units/L (12-78) H 06/16/19 16:47 Alkaline Phosphatase 963 Units/L (46-116) H 06/16/19 16:47 Total Protein 5.6 g/dL (6.4-8.2) L 06/16/19 16:47 Albumin 2.0 g/dL (3.4-5.0) L 06/16/19 16:47 Globulin 3.6 g/dL (2.5-4.5) 06/16/19 16:47 Albumin/Globulin Ratio 0.6 Ratio (1.1-2.1) L 06/16/19 16:47 Amylase 32 Units/L (25-115) 06/16/19 16:47 Lipase 88 Units/L (73-393) 06/16/19 16:47 Specimen Type Random urine 06/16/19 19:05 Urine Color Brown (YELLOW) 06/16/19 19: Urine Appearance Hazy (CLEAR) 06/16/19 19: Urine pH 5.0 (5.0 - 8.0) 06/16/19 19:05 Ur Specific [place] 1.020 (1.000-1.030) 06/16/19 19:05 Urine Protein 2+ (NEGATIVE) 06/16/19 19: Urine Glucose (UA) Negative (NEGATIVE) 06/16/19 19: Urine Ketones 1+ (NEGATIVE) 06/16/19 19:05 Urine Occult Blood 1+ (NEGATIVE) 06/16/19 19: Urine Nitrite Positive (NEGATIVE) 06/16/19 19: Urine Bilirubin 3+ (NEGATIVE) 06/16/19 19:05 Urine Urobilinogen 3+ (NORMAL) 06/16/19 19:05 Ur Leukocyte Esterase 1+ (NEGATIVE) 06/16/19 19: Urine RBC 3-5 /HPF (0-3) A 06/16/19 19: Urine WBC 0-2 /HPF (0-5) 06/16/19 19:05 Ur Squamous Epith Cells Few /HPF (NEGATIVE) 06/16/19 19:05 Urine Bacteria Trace /HPF (NEGATIVE) 06/16/19 19: Granular Casts Few /LPF (NEGATIVE) 06/16/19 19:05 Ur Culture Indicated? No/not indicated 06/16/19 19:05 XRAY XRAY Interpreted by: Radiologist (REPORT NOTED AND DISCUSSED WITH PATIENT.) Opioid Opioid Risk Tool Age (Ramirez box if 16-45): No Total: 0 Total Score Risk Category: Low Risk Copyright: Dave PAUL predicting aberrant behaviors Diagnosis Discharge Problem: Jaundice, Pleural effusion on left, Enlarged prostate, Diverticulosis Biliary stent obstruction Qualifiers: Encounter type: initial encounter Qualified Code(s): T85.590A - Other mechanical complication of bile duct prosthesis, initial encounter UTI (urinary tract infection) Qualifiers: Urinary tract infection type: site unspecified Hematuria presence: with hematuria Qualified Code(s): N39.0 - Urinary tract infection, site not specified Abdominal pain Qualifiers: Abdominal location: generalized Qualified Code(s): R10.84 - Generalized abdominal pain Ascites Qualifiers: Ascites type: malignant Qualified Code(s): R18.0 - Malignant ascites
[2019-06-16 17:15] LABS: BASOPHILS % (AUTO) 0 % (0.2-1.0); EOSINOPHILS % (AUTO) 0.6 % (0.9-2.9); HEMATOCRIT 34.5 % (42.0-54.0); HEMOGLOBIN 11.5 g/dL (13.5-18.0); LYMPHOCYTES # (AUTO) 2.4 X10^3/uL (1.3-2.9); LYMPHOCYTES % (AUTO) 59.3 % (21.0-51.0); MEAN CORPUSCULAR HEMOGLOBIN 28.6 pg (27.0-34.0); MEAN CORPUSCULAR HGB CONC 33.4 g/dL (33.0-35.0); MEAN CORPUSCULAR VOLUME 85.5 fL (80.0-100.0); MEAN PLATELET VOLUME 8.9 fL (7.4-11.0); MONOCYTES # (AUTO) 0.5 x10^3/uL (0.3-0.8); MONOCYTES % (AUTO) 13.4 % (0.0-13.0); NEUTROPHILS # (AUTO) 1.1 x10^3/uL (2.2-4.8); NEUTROPHILS % (AUTO) 26.7 % (42.0-75.0); PLATELET COUNT 235 X10^3/uL (150.0-450.0); RED BLOOD COUNT 4.04 X10^6/uL (4.7-6.0); RED CELL DISTRIBUTION WIDTH 20.9 % (11.6-16.5); WHITE BLOOD COUNT 4.1 X10^3/uL (3.6-10.0)
[2019-06-16 17:39] LABS: ALANINE AMINOTRANSFERASE 87 Units/L (12-78); ALKALINE PHOSPHATASE 963 Units/L (46-116); AMYLASE 32 Units/L (25-115); ASPARTATE AMINO TRANSFERASE 109 Units/L (15-37); BLOOD UREA NITROGEN 19 mg/dL (7-18); CALCIUM 8.7 mg/dL (8.5-10.1); CARBON DIOXIDE 24.1 mmol/L (21-32); CHLORIDE 105 mmol/L (98-107); COR CA(FOR HYPOALB) 10.3 mg/dL (8.5-10.1); CREATININE 0.69 mg/dL (0.70-1.30); LIPASE 88 Units/L (73-393); SODIUM 139 mmol/L (136-145); TOTAL PROTEIN 5.6 g/dL (6.4-8.2); eGFR NON BLACK RACES > 60 (>60)
[2019-06-16 18:13] LABS: ANISOCYTOSIS 1+; HYPOCHROMASIA 1+; PLATELET MORPHOLOGY COMMENT NORMAL (NORMAL); TARGET CELLS 1+
[2019-06-16 19:28] LABS: BILIRUBIN,URINE 3+ (NEGATIVE); BLOOD/HEMOGLOBIN,URINE 1+ (NEGATIVE); GLUCOSE, URINE NEGATIVE (NEGATIVE); KETONES,URINE 1+ (NEGATIVE); LEUKOCYTE ESTERASE ,URINE 1+ (NEGATIVE); NITRITES,URINE POSITIVE (NEGATIVE); PROTEIN,URINE 2+ (NEGATIVE); UROBILINOGEN,URINE 3+ (NORMAL)
[2019-06-16 20:02] LABS: APPEARANCE,URINE HAZY (CLEAR); BACTERIA,URINE TRACE /HPF (NEGATIVE); COLOR,URINE BROWN (YELLOW); SQUAMOUS EPITHELIAL CELL,UR FEW /HPF (NEGATIVE)
[2019-06-16 20:03] LABS: GRANULAR CASTS,URINE FEW /LPF (NEGATIVE)
--- NOTE | 2019-06-16 21:35 | CT ---
HISTORY:Jaundice, back pain, history of esophageal cancerStudy: CT abdomen and pelvis with contrastComparison:12/04/2018Technique: Multiple axial images of the abdomen and pelvis were obtained with IV contrast. Oral contrast was administered. Dose reduction techniques including Automated Exposure Control (AEC) and adjustment of mA and kV were utilized.FINDINGS:There is a partially visualized large left pleural effusion and bibasilar atelectasis. Sternotomy changes are noted. There is chronic distention and postsurgical change of the esophagus. The spleen, kidneys and adrenal glands are unremarkable. The gallbladder is moderately distended and there is diffuse dilation of intrahepatic bile ducts. There is a biliary stent within the common bile duct in appropriate position but without pneumobilia therefore cannot confirm stent patency. The pancreas is atrophic with ductal dilation that also appears chronic.No free intraperitoneal air. There is extensive diverticulosis of the colon. Appendix is normal. There is mild ascites in the pelvis. No abscess identified. Oral contrast reaches the splenic flexure.The soft tissues and osseous structures are intact. There is extensive vascular plaque throughout the aorta and branch vessels without aneurysm. No bulky adenopathy is seen.There are degenerative changes of the lumbosacral spine without acute osseous abnormality. Urinary bladder is unremarkable. Prostate gland is enlarged.IMPRESSION ABDOMEN/PELVIS:1. Gallbladder distension with dilation of intrahepatic bile ducts. There is a biliary stent in place, but without pneumobilia to confirm stent patency. GI follow-up recommended given the history of jaundice. There is dilation of the pancreatic duct as well that appears chronic in nature.2. Partially visualized large left pleural effusion.3. Mild ascites.4. Colonic diverticulosis, enlarged prostate gland, and additional chronic findings as described.Electronically signed by: MONSE COKER (Jun 16, 2019 21:33:34)
[2019-06-16] MEDS ORDERED: ROCEPHIN VIAL 1 GRAM 1 G in NS 100 ML IV + SPIKE MINIBAG* 100 ML IV ONE (21:49)
[2019-06-16] MEDS ORDERED: BENTYL CAP 10 MG PO PRN (23:01)
[2019-06-16] MEDS ORDERED: ROCEPHIN VIAL 1 GRAM ONE (23:25)
[2019-06-16] MEDS ORDERED: NS 100 ML IV 100 ML IV ONE (23:25)
[2019-06-16] MEDS: NEURONTIN CAP 300 MG PO SCH (23:34)
[2019-06-16] MEDS: NS 1000 ML 1,000 ML IV SCH (23:34)
[2019-06-16 23:43] VITALS: BMI 19.7
[2019-06-17 05:49] LABS: BASOPHILS # (AUTO) 0.2 X10^3/uL (0.0-0.1); BASOPHILS % (AUTO) 4.7 % (0.2-1.0); EOSINOPHILS % (AUTO) 0.9 % (0.9-2.9); HEMATOCRIT 32.2 % (42.0-54.0); HEMOGLOBIN 11.1 g/dL (13.5-18.0); LYMPHOCYTES % (AUTO) 69.3 % (21.0-51.0); MEAN CORPUSCULAR HEMOGLOBIN 29.2 pg (27.0-34.0); MEAN CORPUSCULAR HGB CONC 34.4 g/dL (33.0-35.0); MEAN CORPUSCULAR VOLUME 84.9 fL (80.0-100.0); MONOCYTES # (AUTO) 0.2 x10^3/uL (0.3-0.8); MONOCYTES % (AUTO) 5.5 % (0.0-13.0); NEUTROPHILS # (AUTO) 0.8 x10^3/uL (2.2-4.8); NEUTROPHILS % (AUTO) 19.6 % (42.0-75.0); PLATELET COUNT 215 X10^3/uL (150.0-450.0); RED CELL DISTRIBUTION WIDTH 20.7 % (11.6-16.5); WHITE BLOOD COUNT 4.3 X10^3/uL (3.6-10.0)
[2019-06-17] MEDS: NEURONTIN CAP 300 MG PO SCH ×2 (05:55→15:48)
[2019-06-17 06:11] LABS: ALANINE AMINOTRANSFERASE 74 Units/L (12-78); ALBUMIN 1.6 g/dL (3.4-5.0); ALKALINE PHOSPHATASE 885 Units/L (46-116); AMYLASE 27 Units/L (25-115); ASPARTATE AMINO TRANSFERASE 89 Units/L (15-37); BLOOD UREA NITROGEN 18 mg/dL (7-18); CALCIUM 8.2 mg/dL (8.5-10.1); CARBON DIOXIDE 23.1 mmol/L (21-32); CHLORIDE 106 mmol/L (98-107); COR CA(FOR HYPOALB) 10.1 mg/dL (8.5-10.1); CREATININE 0.72 mg/dL (0.70-1.30); LIPASE 81 Units/L (73-393); SODIUM 138 mmol/L (136-145); eGFR NON BLACK RACES > 60 (>60)
[2019-06-17 06:28] LABS: BAND NEUTROPHILS % 2 % (0-10); PLATELET MORPHOLOGY COMMENT NORMAL (NORMAL)
[2019-06-17 06:29] LABS: ANISOCYTOSIS 1+; TARGET CELLS PRESENT
[2019-06-17] MEDS ORDERED: MORPHINE SULFATE INJ 2 MG INJ IVP PRN (08:56)
[2019-06-17] MEDS ORDERED: ASPIRIN EC 81 MG PO SCH (09:00)
[2019-06-17] MEDS: CARAFATE PO SCH ×2 (09:34→15:48)
[2019-06-17] MEDS: NS 1000 ML 1,000 ML IV SCH (09:35)
--- NOTE | 2019-06-17 12:18 | DR.CONSULT ---
Consult - Consultation for Day of: Date: 06/17/19 - Chief Complaint Chief Complaint: Patient referred for common bile duct dilatation. Patient with complaints of dyspepsia and abdominal pain. - History of Present Illness History of Present Illness: Patient is a 83 yo male who was referred for common bile duct dilatation. Patient with complaints of dyspepsia and abdominal pain with meals. Patient denies dysphagia, nausea, vomiting, constipation, dairrhea, constipation, melena and hematochezia. Patient with history of CBD stent placement in [place] 07/2018. Abdomen and Pelvis CT Gallbladder distension with dilation of intrahepatic bile ducts. There is a biliary stent in place, but without pneumobilia to confirm stent patency. GI follow-up recommended given the history of jaundice. There is dilation of the pancreatic duct as well that appears chronic in nature. WBC 4.3, Hgb 11.1, Hct 32.2, Plt 215, T. Bili 13.5, AST 89, ALT 74, ALP 885 - Past Medical History Past Medical History: Arthritis, CHF, COPD, Coronary Artery Disease, GERD Additional Medical History: esophageal cancer - Past Surgical History Surgical History: CABG/Valve Surgery Additional Surgical History: triple Bypass, pacemaker, esophagectomy - Family History Family Medical History: Cancer, Sudden Cardiac - Social History Does patient currently use any type of tobacco product: No Have you used tobacco products in the last 12 months: No Type of Tobacco Use: None Does any household member use tobacco: No Alcohol Use: None Drug Use: None - Medications Home Medications: No Known Drug Allergies Allergy (Verified 06/16/19 16:37) CONTINUE taking the following medications aspirin 81 mg PO DAILY 06/16/19 [History] dicyclomine 20 mg PO Q8H PRN 06/16/19 [History] pantoprazole [Protonix] 40 mg PO DAILY 06/16/19 [History] - Review of Systems Gastrointestinal: See HPI, Abdominal Pain. denies: Nausea, Vomiting, Diarrhea, Constipation, Melena, Hematochezia, Other - Physical Exam Vital Signs: Temperature 98.7 F Pulse Rate [Left Radial] 69 Pulse Rate 70 Respiratory Rate 20 Blood Pressure [Left Arm] 97/60 Blood Pressure [Right Arm] 91/58 Blood Pressure 126/80 O2 Sat by Pulse Oximetry 96 Oriented: Normal Eyes: Normal Ear: Normal Nose: Normal Throat: Normal Respiratory: Clear Throughout Cardiovascular: Normal Auscultation: Bowel Sounds: Normal Palpation: Normal, Other (no distention). negative: Spleen Enlarged, Liver Enlarged, Mass Pulsatile Tenderness: Diffuse Skin: Normal Musculoskeletal: Normal Psychiatric: Normal Mood Description: Calm Affect: Normal Speech Pattern: Clear, Appropriate - Plan Plan: Assessment. 1. 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 2. History of Esohageal cancer. Plan. 1. Get records from [facility], will need transfer for stent replacement, Monitor LFTs - Allergies Allergies/Adverse Reactions: Allergies Allergy/AdvReac Type Severity Reaction Status Date / Time No Known Drug Allergies Allergy Verified 06/16/19 16:37
[2019-06-17] MEDS ORDERED: K-RIDER 10 MEQ/NS 100 ML 10 MEQ/100 ML BAG IV PRN (17:44)
[2019-06-17] MEDS ORDERED: POTASSIUM CHLORIDE LIQ 20 MEQ UDC PO PRN (17:44)
[2019-06-17] MEDS ORDERED: K-DUR TAB 20 MEQ PO PRN (17:44)
[2019-06-17] MEDS ORDERED: POTASSIUM CHL 60 MEQ/NS 0.45% 500 ML IV PRN (17:44)
[2019-06-17] MEDS ORDERED: POTASSIUM CHL 40 MEQ/NS 0.45% 500 ML IV PRN (17:44)
[2019-06-17] MEDS ORDERED: MICRO K EXTEN CAP 10 MEQ PO PRN (17:44)
[2019-06-17] MEDS ORDERED: MAGNESIUM SULFATE 1 GRAM/100 mL PREMIX 1 GM/100 ML BAG IV PRN (17:44)
[2019-06-17] MEDS ORDERED: KLOR-CON PO PRN (17:44)
[2019-06-17 17:57] VITALS: BP 106/65
== END 2019-06-17 19:20 | disposition short-term general hospital (02) | DRG 445 ==
LOC: ER 16:19 → MED/SURG 21:59
PROVIDERS: ADMIT Internal Medicine; ATTEND Internal Medicine
DX: N39.0 Urinary tract infection, site not specified; R10.84 Generalized abdominal pain; I25.10 Atherosclerotic heart disease of native coronary artery without angina pectoris; I10 Essential (primary) hypertension; R17 Unspecified jaundice; Z85.01 Personal history of malignant neoplasm of esophagus; K83.1 Obstruction of bile duct; K82.8 Other specified diseases of gallbladder; J90 Pleural effusion, not elsewhere classified